=== PATIENT | male | born 1955 | race Caucasian/White ===

== ENCOUNTER 2021-01-09 06:31 | Day surgery (SDC) | payer OTHER ==
[~2021-01-09] VITALS: Ht 170.2 cm; Wt 105.0 kg
[~2021-01-09 06:31] MED LIST: ACET500 PO; ALBU90OI INH; ANORO ELLIPTA1 EACH INH; ASPIR 8181 M1 PO; ATOR40TA PO; CYCL10 PO; Cyclobenzaprine5 MG PO; FURO40 PO; IBUP200; IBUP600 PO; IPRAT-ALBUT 0.5-3 ML IH; MELO7.5 PO; OMEP20ER PO; POTCHL20ER PO; PRED10 PO; PROAIR DIGIHAL90 MCG IH; Prednisone20 MG PO; QVAR REDIHALE10.6 G2 IH; RANI150; TUMS500 MG PO; Travatan Z5 ML OP; ULCER MED; Ultram50 MG PO; Vitamin B Comple1 EA PO; XALATAN2.5 ML; Zithromax250 MG PO
--- NOTE | 2021-01-09 09:51 | NUR ---
12CC AIR REMOVED FROM R WRIST TR BAND. -BLEEDING OR SWELLING.
--- NOTE | 2021-01-09 10:15 | NUR ---
PT VERABLIZES UNDERSTANDING WRITTEN AND VERBAL ORDERS. DENIES QUESTIONS. VSS. NO BLEEDING OR HEMATOMA TO R RADIAL SITE.
--- NOTE | 2021-01-09 10:30 | NUR ---
PT DRESSES SELF WITHOUT DIFF. PT TR BAND REMOVED. DOT DRESSING APPLIED WITH SLING. NO BLEEDING OR HEMATOMA NOTED. VSS. PT IV DC'D. CATH INTACT. PRESSURE DSG APPLIED. PT DC TO HOME VIA WC BY [facility].
== END 2021-01-09 10:30 | disposition home or self-care (01) ==
LOC: MHTC 06:31
PROC: 4A023N7 Measurement of Cardiac Sampling and Pressure, Left Heart, Percutaneous Approach (ICD-10-PCS; principal; 2021-01-09)
PROC: B2111ZZ Fluoroscopy of Multiple Coronary Arteries using Low Osmolar Contrast (ICD-10-PCS; principal; 2021-01-09)
DX: R07.9 Chest pain, unspecified (principal); R06.09 Other forms of dyspnea
CPT/HCPCS: 93458; 99152; 99153; C1769; C1894; J1644; J2250; J3010; J7030; J7050; Q9967

== ENCOUNTER 2021-03-13 10:41 | Emergency (ER) | payer OTHER ==
[~2021-03-13] VITALS: Ht 170.2 cm; Wt 99.3 kg
[2021-03-13 11:56] LABS: BASOPHILS ABSOLUTE AUTO 0.04 K/mm3 (0.00-0.23); BASOPHILS PERCENT AUTO 0 % (0-2); EOSINOPHILS ABSOLUTE AUTO 0.24 K/mm3 (0.00-0.68); EOSINOPHILS PERCENT AUTO 2 % (0-6); Hematocrit 47.6 % (37.0-53.0); Hemoglobin 15.6 g/dL (13.5-17.5); IMMATURE GRAN ABSOLUTE AUTO 0.05 K/mm3 (0.00-0.10); IMMATURE GRAN PERCENT AUTO 0 % (0-1); LYMPHOCYTES PERCENT AUTO 26 % (21-46); MONOCYTES ABSOLUTE AUTO 0.92 K/mm3 (0.16-1.47); MONOCYTES PERCENT AUTO 8 % (4-13); Mean Corpuscular HGB 30.5 pg (26.0-34.0); Mean Corpuscular HGB Conc 32.8 g/dL (31.5-36.5); Mean Corpuscular Volume 93 fL (80-100); Mean Platelet Volume 10.1 fL (9.1-12.4); NEUTROPHILS ABSOLUTE AUTO 7.32 K/mm3 (1.96-9.15); NEUTROPHILS PERCENT AUTO 63 % (41-73); Platelet Count 147 K/mm3 (150-400); RDW Coefficient Variation 12.5 % (11.7-14.2); RDW Standard Deviation 43.3 fL (35.1-46.3); Red Blood Cell Count 5.12 M/mm3 (4.30-5.90); White Blood Cell Count 11.57 K/mm3 (4.00-11.30)
[2021-03-13 12:22] LABS: Anion Gap 3 mmol/L (6-16); Blood Urea Nitrogen 25 mg/dL (8-24); Bun/Creatinine Ratio 31.4 (12.0-20.0); CO2, Blood 30 mmol/L (21-32); Chloride, Blood 107 mmol/L (98-108); Glomerular Filtration Rate >60 (60-); Glucose, Blood 135 mg/dL (70-99); Sodium, Blood 140 mmol/L (136-145)
[2021-03-13] MEDS ORDERED: XARELTO15 MG PO (12:36)
== END 2021-03-13 12:48 | disposition home or self-care (01) ==
LOC: ER 10:41
PROVIDERS: Emergency Medicine
DX: I82.4Z1 Acute embolism and thrombosis of unspecified deep veins of right distal lower extremity (principal); I82.431 Acute embolism and thrombosis of right popliteal vein; I82.441 Acute embolism and thrombosis of right tibial vein
CPT/HCPCS: 36415; 80048; 85025; 99283

== ENCOUNTER 2021-04-10 17:53 | Emergency (ER) | payer OTHER ==
[~2021-04-10] VITALS: Ht 170.2 cm; Wt 106.7 kg
[~2021-04-10 17:53] MED LIST changes: +XARELTO15 MG PO
[2021-04-10] MEDS ORDERED: ENOX100I SC (20:09)
[2021-04-10 20:18] LABS: Alanine Aminotransfer (ALT/SGP 36 U/L (12-78); Albumin, Blood 3.7 g/dL (3.4-5.0); Albumin/Globulin Ratio 1.1 (0.8-1.8); Alk Phos 86 U/L (50-136); Anion Gap 5 mmol/L (6-16); Aspartate Aminotrans (AST/SGOT 25 U/L (12-37); Bilirubin, Total 0.4 mg/dL (0.1-1.0); Blood Urea Nitrogen 22 mg/dL (8-24); Bun/Creatinine Ratio 26.3 (12.0-20.0); CO2, Blood 27 mmol/L (21-32); Calcium, Blood 8.6 mg/dL (8.5-10.1); Chloride, Blood 110 mmol/L (98-108); Creatinine, Blood 0.84 mg/dL (0.60-1.20); Globulin, Blood 3.4 g/dL (2.2-4.0); Glomerular Filtration Rate >60 (60-); Glucose, Blood 162 mg/dL (70-99); Sodium, Blood 142 mmol/L (136-145); Total Protein, Blood 7.1 g/dL (6.4-8.2)
[2021-04-10 20:29] LABS: BASOPHILS ABSOLUTE AUTO 0.04 K/mm3 (0.00-0.23); BASOPHILS PERCENT AUTO 0 % (0-2); EOSINOPHILS ABSOLUTE AUTO 0.33 K/mm3 (0.00-0.68); EOSINOPHILS PERCENT AUTO 3 % (0-6); Hematocrit 46.5 % (37.0-53.0); Hemoglobin 15.5 g/dL (13.5-17.5); IMMATURE GRAN ABSOLUTE AUTO 0.02 K/mm3 (0.00-0.10); IMMATURE GRAN PERCENT AUTO 0 % (0-1); LYMPHOCYTES ABSOLUTE AUTO 3.35 K/mm3 (0.84-5.20); LYMPHOCYTES PERCENT AUTO 34 % (21-46); MONOCYTES ABSOLUTE AUTO 0.88 K/mm3 (0.16-1.47); MONOCYTES PERCENT AUTO 9 % (4-13); Mean Corpuscular HGB 31.1 pg (26.0-34.0); Mean Corpuscular HGB Conc 33.3 g/dL (31.5-36.5); Mean Corpuscular Volume 93 fL (80-100); NEUTROPHILS ABSOLUTE AUTO 5.36 K/mm3 (1.96-9.15); NEUTROPHILS PERCENT AUTO 54 % (41-73); Platelet Count 173 K/mm3 (150-400); RDW Coefficient Variation 13.2 % (11.7-14.2); RDW Standard Deviation 44.9 fL (35.1-46.3); Red Blood Cell Count 4.98 M/mm3 (4.30-5.90); White Blood Cell Count 9.98 K/mm3 (4.00-11.30)
[2021-04-10 21:11] LABS: SARS-Cov-2 (COVID-19) PCR, MMC NEGATIVE (NEGATIVE)
== END 2021-04-10 20:49 | disposition home or self-care (01) ==
LOC: ER 17:53
PROVIDERS: Physician Assistant
DX: I82.411 Acute embolism and thrombosis of right femoral vein (principal); I82.431 Acute embolism and thrombosis of right popliteal vein; I82.441 Acute embolism and thrombosis of right tibial vein; I82.451 Acute embolism and thrombosis of right peroneal vein; F17.210 Nicotine dependence, cigarettes, uncomplicated; Z79.82 Long term (current) use of aspirin; Z79.01 Long term (current) use of anticoagulants; Z79.899 Other long term (current) drug therapy; Z20.822 Contact with and (suspected) exposure to COVID-19
CPT/HCPCS: 36415; 80053; 85025; 85730; 93970; 99283-25; U0004

== ENCOUNTER 2021-04-16 09:02 | Day surgery (SDC) | payer OTHER ==
[~2021-04-16] VITALS: Ht 170.2 cm; Wt 107.9 kg
[~2021-04-16 09:02] MED LIST changes: +ENOX100I SC
--- NOTE | 2021-04-16 12:33 | NUR ---
PATIENT RETURNED FROM THE CATHLAB, PLACED ON THE MONITOR AND AWAKE, NO PAIN NOTED FROM THE PATIENT. RIGHT PEDAL AND RIGHT POPITEAL SITES WITH BANDAIDS IN PLACE. NEW ORDERED NOTED AND LOVENOX SQ GIVEN ORDERED.
--- NOTE | 2021-04-16 12:56 | NUR ---
REARRANGED RIDE HOME VIA SHUTTLE FOR 1534 AT THE [place] [facility]. PATIENT WAS INFORMED.
--- NOTE | 2021-04-16 13:33 | NUR ---
2 GRAM OF ANCEF INFUSING VIA PIV ORDERED BY DR. WISE.
--- NOTE | 2021-04-16 15:05 | NUR ---
PURSE STRING SUTURE REMOVED, PRSEEURE APPLIED TO R POP SITE. CLOTH DOT PLACED, PT UP WALKING IN ROOM. NO BLEEDING NOTED.
--- NOTE | 2021-04-16 15:17 | NUR ---
PT UP AND WALKING AROUND, POP SITE STABLE WITH NO BLEEDING NOTED. DISCHARGE REVIEWED WITH PT, VERBALIZES UNDERSTANDING. SALINE LOCK REMOVED WITH CATHETER INTACT. PT TO RIDE PER W/C WITH ONE STAFF.
== END 2021-04-16 15:15 | disposition home or self-care (01) ==
LOC: MHTC 09:02
DX: I82.431 Acute embolism and thrombosis of right popliteal vein (principal); I82.421 Acute embolism and thrombosis of right iliac vein; J44.9 Chronic obstructive pulmonary disease, unspecified; Z79.82 Long term (current) use of aspirin; Z87.891 Personal history of nicotine dependence
CPT/HCPCS: 37187; 75820; 75825; 76937; 99152; 99153; C1757; C1769; C1887; C1894; J0690; J1644; J1650; J2250; J2997; J3010; J7030; J7050; Q9967

== ENCOUNTER → 2021-08-27 | Outpatient (CLI) | payer OTHER | END | disposition home or self-care (01) | LOC: LAB SHORT 14:47 | DX: L30.8 Other specified dermatitis (principal) | CPT/HCPCS: 88305; 88312 ==

== ENCOUNTER → 2021-09-12 | Outpatient (CLI) | payer OTHER | END | disposition home or self-care (01) | LOC: LAB SHORT 18:51 | DX: L08.9 Local infection of the skin and subcutaneous tissue, unspecified (principal); D22.5 Melanocytic nevi of trunk; B35.1 Tinea unguium; L57.8 Other skin changes due to chronic exposure to nonionizing radiation; L81.4 Other melanin hyperpigmentation; R21 Rash and other nonspecific skin eruption; Z71.89 Other specified counseling; Z86.007 Personal history of in-situ neoplasm of skin | CPT/HCPCS: 87070; 87077; 87186; 87205 ==

== ENCOUNTER → 2022-12-11 | Outpatient (CLI) | payer OTHER, MEDICARE | END | disposition home or self-care (01) | LOC: LAB SHORT 17:14 | DX: E11.9 Type 2 diabetes mellitus without complications (principal) | CPT/HCPCS: 83036 ==

== ENCOUNTER → 2022-12-14 | Outpatient (CLI) | payer OTHER, MEDICARE ==
[2022-12-15 16:11] LABS: HIV AB/P24 AG SCREEN Non Reactive (Non Reactive)
== END | disposition home or self-care (01) ==
LOC: LAB SHORT 14:34
PROVIDERS: Family Medicine
DX: Z11.4 Encounter for screening for human immunodeficiency virus [HIV] (principal)
CPT/HCPCS: 87389

== ENCOUNTER → 2023-03-15 | Outpatient (CLI) | payer MEDICARE, OTHER ==
[~2023-03-15] MED LIST changes: +BENADRYL25 MG PO; +Betamethasone V15 GM; +ELIQUIS5 M2 PO; +ELLZIA PAK1 EACH TP; +GABA300 PO; +GLIP10 PO; +IPRAT-ALBUT 0.5-3 ML INH; +METF500 PO; +METO25ER PO; +Percocet 5-3251 EACH PO; +Prinivil10 MG PO; +SITA100T2 PO; +VITAMIN D325 MC3 PO
== END ==
LOC: LAB 13:33 → LAB SHORT 13:33
DX: E11.9 Type 2 diabetes mellitus without complications (principal)
CPT/HCPCS: 82043

== ENCOUNTER 2023-03-16 06:25 | Day surgery (SDC) | payer MEDICARE, OTHER ==
[2023-03-16] VITALS (17 sets, daily range): BP systolic 113–164; BP diastolic 60–90
[~2023-03-16] VITALS: Ht 170.2 cm; Wt 96.8 kg
[~2023-03-16 06:25] MED LIST changes: -BENADRYL25 MG PO; -Betamethasone V15 GM; -ELLZIA PAK1 EACH TP; -GABA300 PO; -GLIP10 PO; -IPRAT-ALBUT 0.5-3 ML INH; -Percocet 5-3251 EACH PO; -VITAMIN D325 MC3 PO
[2023-03-16] MEDS ORDERED: BENADRYL25 MG PO ×2 (07:06)
[2023-03-16] MEDS ORDERED: Betamethasone V15 GM ×2 (07:07)
[2023-03-16] MEDS ORDERED: GABA300 PO ×2 (07:08)
[2023-03-16] MEDS ORDERED: GLIP10 PO ×2 (07:09)
[2023-03-16] MEDS ORDERED: IPRAT-ALBUT 0.5-3 ML INH ×2 (07:10)
[2023-03-16] MEDS ORDERED: ELLZIA PAK1 EACH TP ×2 (07:12)
[2023-03-16] MEDS ORDERED: VITAMIN D325 MC3 PO ×2 (07:13)
--- NOTE | 2023-03-16 07:36 | NUR ---
Ambulatory in Day SurgeryPre-Op teaching done. Pt verbalizes understanding. Patient confirms NPO status and agrees with scheduled surgery. History, Chart, Medications and Allergies reviewed before start of procedure. PT HAS A WALKER WHICH HAS BEEN LABELED AND PUT INTO PACU ALONG WITH HIS AFFILIATE MARKETING SPECIALIST
--- NOTE | 2023-03-16 10:20 | NUR ---
ARRIVAL PATIENT TO ROOM 221 VIA BED. VSS ON RA, LUNGS CLEAR AT THIS TIME. AQUACEL TO RIGHT HIP, C/D/I. POLAR PACK, TRUPTI HOSE, & SCD'S IN PLACE. SENSATION AT HIPS/THIGHS AT THIS TIME D/T SPINAL, UNABLE TO WIGGLE/MOVE FEET. DENIES N/V, SNACKS AT BEDSIDE WHEN PATIET IS READY. ORIENTED TO ROOM & CALL LIGHT, IN REACH.
[2023-03-16] MEDS ORDERED: Percocet 5-3251 EACH PO ×2 (16:33)
--- NOTE | 2023-03-16 18:04 | NUR ---
SHIFT SUMMARY POD 0 R JORDON. NO ACUTE CHANGES SINCE ARRIVAL TO UNIT. AQAUCEL IN PLACE TO RIGHT HIP, C/D/I. POLAR PACK & SCD'S IN PLACE. PATIENT WORKED WITH THERAPY AND DID VERY WELL, UP SBA W/ FWW & GB. PATIENT REPORTS MINIMAL PAIN T/O SHIFT, MEDICATED PER EMAR. EATING, DRINKING, & VOIDING WELL. CALLS APPROPRIATELY, IN REACH. WILL REPORT TO ONCOMING RN AT 1900.
[2023-03-17 04:03] VITALS: BP 120/60
[2023-03-17 04:25] LABS: BASOPHILS ABSOLUTE AUTO 0.01 K/mm3 (0.00-0.23); BASOPHILS PERCENT AUTO 0 % (0-2); EOSINOPHILS PERCENT AUTO 0 % (0-6); Hemoglobin 12.1 g/dL (13.5-17.5); IMMATURE GRAN ABSOLUTE AUTO 0.06 K/mm3 (0.00-0.10); IMMATURE GRAN PERCENT AUTO 0 % (0-1); LYMPHOCYTES ABSOLUTE AUTO 2.22 K/mm3 (0.84-5.20); LYMPHOCYTES PERCENT AUTO 14 % (21-46); MONOCYTES ABSOLUTE AUTO 1.23 K/mm3 (0.16-1.47); MONOCYTES PERCENT AUTO 8 % (4-13); Mean Corpuscular HGB 30.8 pg (26.0-34.0); Mean Corpuscular HGB Conc 33.6 g/dL (31.5-36.5); Mean Corpuscular Volume 92 fL (80-100); Mean Platelet Volume 10.4 fL (9.1-12.4); NEUTROPHILS ABSOLUTE AUTO 12.95 K/mm3 (1.96-9.15); NEUTROPHILS PERCENT AUTO 79 % (41-73); Platelet Count 164 K/mm3 (150-400); RDW Standard Deviation 47.4 fL (35.1-46.3); Red Blood Cell Count 3.93 M/mm3 (4.30-5.90); White Blood Cell Count 16.47 K/mm3 (4.00-11.30)
[2023-03-17 04:46] LABS: Bun/Creatinine Ratio 20.6 (12.0-20.0); Creatinine, Blood 0.92 mg/dL (0.60-1.20); Potassium, Blood 4.7 mmol/L (3.5-5.5)
--- NOTE | 2023-03-17 07:15 | NUR ---
SHIFT SUMMARY POD 1 ANTERIOR R HIP ARTH, AQUACEL C/D/I W/ QUARTER SIZE DRAINAGE TO DRESSING. POLAR PACK IN PLACE. PT EXPERIENCES NAUSEA W/ IV PAIN MEDS. PT UP TO CHAIR THIS A.M. AMBULATING WELL W/ FWW. PLANS FOR DISCHARGE TO HOME TODAY. NO ACUTE CHANGES THIS SHIFT.
[2023-03-17 07:52] VITALS: BP 127/72
--- NOTE | 2023-03-17 10:51 | NUR ---
DISCHARGE NOTE: PATIENT WAS EDUCATED ON DISCHARGE INSTRUCTIONS. PATIENT VERBALIZED UNDERSTANDING OF INSTRUCTIONS AND HAD ON FURTHER QUESTIONS AT THIS TIME. IV WAS TAKEN OUT AND WNL. HARD PERSCRIPTION WAS PLACED IN INSTRUCTIONS FOLDER. PATIENTS RIGHT HIP HAS AN AQUACEL THAT IS C/D/I. DENIES NUMBNESS OR TINGLING IN ALL EXTREMITIES. HE IS TOLERATING PO INTAKE AND IS VOIDING. PATIENT IS DRESSED AND HAS PERSONAL ITEMS IN THE ROOM GATHERED. PATIENT WAS JUST WHEELCHAIRED DOWN TO THE TRANSPORT THAT WAS COORDINATED WITH THE SCRAP CRANE OPERATOR THIS MORNING TO TAKE HIM HOME.
== END 2023-03-17 10:49 | disposition home or self-care (01) ==
LOC: ORSCMMR 06:25 → ORD 07:30 → ORSCMMR 07:30 → SURS 10:10 → ORSCMMR 03-17 10:49
PROVIDERS: Orthopaedic Surgery
PROC: 0SR90JZ Replacement of Right Hip Joint with Synthetic Substitute, Open Approach (ICD-10-PCS; principal; 2023-03-16 07:30)
DX: M16.11 Unilateral primary osteoarthritis, right hip (principal); E11.9 Type 2 diabetes mellitus without complications; J44.9 Chronic obstructive pulmonary disease, unspecified; I10 Essential (primary) hypertension; Z86.718 Personal history of other venous thrombosis and embolism; Z79.01 Long term (current) use of anticoagulants; Z79.4 Long term (current) use of insulin; Z79.84 Long term (current) use of oral hypoglycemic drugs; Z79.899 Other long term (current) drug therapy
CPT/HCPCS: 36415; 72170; 80048; 82947; 85025; 94640; 94664; 94760; 97110; 97116; 97162; 97530; A9270; C1776; J0171; J0690; J0735; J1100; J1170; J1815; J1885; J2250; J2371; J2405; J2704; J2795; J3010; J7120

== ENCOUNTER → 2023-05-07 | Outpatient (CLI) | payer MEDICARE, OTHER ==
[~2023-05-07] MED LIST changes: +BENADRYL25 MG PO; +Betamethasone V15 GM; +ELLZIA PAK1 EACH TP; +GABA300 PO; +GLIP10 PO; +IPRAT-ALBUT 0.5-3 ML INH; +Percocet 5-3251 EACH PO; +VITAMIN D325 MC3 PO
[2023-05-07 15:03] LABS: CHOL/HDL RATIO 2.7; Cholesterol 135 mg/dL (50-200); HDL Cholesterol 50 mg/dL (>39); LDL/HDL RATIO 1.3; Low Density Lipoprotein Chol 65 mg/dL (0-110); Triglycerides 98 mg/dL (30-160); Very Low Density Lipoprot Chol 19 mg/dL (6-32)
== END ==
LOC: LAB SHORT 12:59 → LAB 12:59
PROVIDERS: Family Medicine
DX: E78.5 Hyperlipidemia, unspecified (principal)
CPT/HCPCS: 80061

== ENCOUNTER → 2023-08-03 | Outpatient (CLI) | payer MEDICARE, OTHER | LOC: LAB 17:29 → LAB SHORT 17:29 | DX: E11.9 Type 2 diabetes mellitus without complications (principal) | CPT/HCPCS: 82043 ==

== ENCOUNTER → 2025-08-20 | Outpatient (CLI) | payer MEDICARE, OTHER ==
[~2025-08-20] MED LIST changes: +Norco 5-325 Ta1 EACH PO
[2025-08-20 21:33] LABS: Creatinine, Urine Random 142.0 mg/dL (27.00-270.00); Microalbumin, Random Urine 12.4 mg/L (0.000-20.000)
== END ==
LOC: LAB SHORT 15:05 → LAB 15:05
PROVIDERS: Family Medicine
DX: I10 Essential (primary) hypertension (principal); E11.9 Type 2 diabetes mellitus without complications
CPT/HCPCS: 82043; 82570